=== PATIENT | male | born 1940 | race Caucasian/White ===

== ENCOUNTER → 2018-10-24 | Day surgery (SDC) | payer MEDICARE ==
[~2018-10-24] MED LIST: CEFTRIAXONE SOD 1 GM/NS 50 ML 50 ML IV ONE; FINASTERIDE5 MG PO; GABAPENTIN300 MG PO; LIDOCAINE JELLY 2% 10ML URO-JET ONE; MONTELUKAST SOD10 MG PO; OMEPRAZOLE40 MG PO
--- OUTSIDE RECORDS SUMMARY | 2018-10-24 07:03 | XMS REPORT ---
Author Author [facility] Address Unknown Phone Unavailable Care Team Providers Care Engineering Design Manager Name Role Phone Unavailable Unavailable Problems This patient has no known problems. Allergies, Adverse Reactions, Alerts This patient has no known allergies or adverse reactions. Medications This patient has no known medications. Results Test Description Test Time Test Comments Text Results Atomic Results Result Comments ECHO COMPLETE W/DOPPLER 2018-10-08 09:53:00 [facility] REPORTName: BONITA ROSE JR Study Date: 09/09/2018 02:37 PMMRN: [id number] Patient Location: 4S\\ S\\406\\S\\ADOB: 1940 (M/d/yyyy) Gender: MaleAge: 78 yrsHeight: 69 in Weight: 251 lbBSA: 2.3 x9Sssoxp For Study: SYNCOPE AND COLAPPSEProceduresA complete two-dimensional transthoracic echocardiogram was performed (2D,M-mode, Doppler and color flow Doppler).MMode/2D Measurements & CalculationsRVDd: 2.9 cm LVIDd: 5.3 cmIVSd: 1.1 cm LVIDs: 3.3 cmIVSs: 1.5 cm LVPWd: 1.1 cmLVPWs: 2.3 cm FS: 36.4 % % IVS thick: 41.7 %EDV(Teich): 133.5 mlESV(Teich): 45.7 mlEF(Teich): 65.7 % SV([facility] [place]): 87.7 ml Ao root diam: 3.0 cmAo root area: 7.0 cm2ACS: 1.5 cmLA dimension: 3.7 cm LVOT diam: 2.1 cmLVAd ap4: 22.8 [id number] area: 3.4 cm2 LVLd ap4: 7.7 cmEDV(MOD-sp4): 55.1 mlEDV(sp4-el): 57.0 mlLVAs ap4: 10.7 [id number] ap4: 4.9 cmESV(MOD-sp4): 20.4 mlESV(sp4-el): 19.9 mlEF(MOD-sp4): 62.9 %EF(sp4-el): 65.1 % SV(MOD-sp4): 34.7 ml SV(sp4-el): 37.1 mlDoppler Measurements & CalculationsMV E max saleem: 107.5 cm/sec MV P1/2t max saleem: 117.7 cm/secMV A max saleem: 66.2 cm/sec MV P1/2t: 65.7 msecMV E/A: 1.6MVA(P1/2t): 3.3 cm2MV dec slope: 524.7 cm/sec2MV dec time: 0.22 secLat Peak E' Saleem: 14.9 cm/secMed Peak E' Saleem: 12.9 cm/secLat E/e': 7.2Med E/e': 8.3 Ao V2 max: 132.5 cm/sec LV V1 max P.8 mmHgAo max P.0 mmHg LV V1 max: 97.9 cm/secAVA(V,D): 2.5 cm2AV Dimensionless Index: 0.74 MR max saleem: 329.7 cm/sec TR max saleem: 274.8 cm/secMR max P.5 mmHg TR max P.2 mmHgRVSP(TR): 38.2 mmHg RAP systole: 10.0 mmHgLeft VentricleThe left ventricle is grossly normal size. Left ventricular systolicfunction is normal. Ejection Fraction=65-70%. The transmitral spectralDoppler flow pattern is suggestive of pseudonormalization. The leftventricular wall motion is normal.Right VentricleThe right ventricle is grossly normal size.AtriaThe left atrial size is normal. Right atrial size is normal.Mitral ValveThe mitral valve is grossly normal. There is trace mitral regurgitation.Tricuspid ValveThe tricuspid valve is not well visualized, but is grossly normal. Rightventricular systolic pressure is normal. Right ventricular systolic pressureis 25-30mmHg. There is trace tricuspid regurgitation.Aortic ValveThe aortic valve is normal in structure and function.Great VesselsThe aortic root is normal size.Pericardium/PleuralThere is no pericardial effusion.Interpretation SummaryLeft ventricular systolic function is normal.Ejection Fraction=65-70%.The transmitral spectral Doppler flow pattern is suggestive ofpseudonormalization.Right ventricular systolic pressure is 25-30mmHg.Right ventricular systolic pressure is normal. Reading Physician: Electronically signed Smith Herrera MD 10/08/2018by: 09:53 AMOrdering Physician: OSMIN MATAReferrsergio Physician: KATEY KOPerformed By: Cheyenne Ricardo, SEAN, RVS MRI BRAIN W 2018-09-10 07:50:[address] [id number] IMAGING REPORTPatient Name: BONITA ROSE Stephy of Service: [id number]: 78 Sex: M Order #: [id number] Room: [facility] 4SDOB: 1940 X-Ray Number: [id number] Record Number: [id number] Hospital Number: [id number] Physician: PILAR HUITRON SOrdersergio Physician: OSMIN CARSONBrain MRI. Brain MRA.History: Slurred speech.Technique: IV contrast enhanced multiplanar multisequence MRI images of thebrain were reviewed. 3-D images of the intracranial vasculature wereincluded. The patient received 10 cc of IV MultiHance.Comparison: Nonacute CT head from September 08, 2018.Findings:There are no specific acute appearing intracranial defects depicted.There are scattered foci of high signal likely related to chronicmicrovascular ischemic changes.The ventricles appear symmetric and midline.The brown-white matter differentiation appears normal.The intracranial flow voids appear normal.There are no areas of diffusion restriction to suggest the presence ofacute or subacute ischemia.There is no specific intracranial vascular abnormality.Impression:No acute appearing intracranial abnormalities.No specific intracranial vascular abnormality.Electronically Signed By: Dino Fan M.D., 09/10/2018 7:48 AMLegally authenticated by MISSY Cabrera 2018-09-10 07:48:35 MRA HEAD W/O CONT 2018-09-10 07:50:[address] [id number] IMAGING REPORTPatient Name: BONITA ROSE HDate of Service: [id number]: 78 Sex: M Order #: [id number] Room: [facility] 4SDOB: 1940 X-Ray Number: [id number] Record Number: [id number] Hospital Number: [id number] Physician: PILAR HUITRON Physician: OSMIN CARSONBrain MRI. Brain MRA.History: Slurred speech.Technique: IV contrast enhanced multiplanar multisequence MRI images of thebrain were reviewed. 3-D images of the intracranial vasculature wereincluded. The patient received 10 cc of IV MultiHance.Comparison: Nonacute CT head from September 08, 2018.Findings:There are no specific acute appearing intracranial defects depicted.There are scattered foci of high signal likely related to chronicmicrovascular ischemic changes.The ventricles appear symmetric and midline.The brown-white matter differentiation appears normal.The intracranial flow voids appear normal.There are no areas of diffusion restriction to suggest the presence ofacute or subacute ischemia.There is no specific intracranial vascular abnormality.Impression:No acute appearing intracranial abnormalities.No specific intracranial vascular abnormality.Electronically Signed By: Dino Fan M.D., 09/10/2018 7:48 AMLegally authenticated by MISSY Cabrera 2018-09-10 07:48:35 [facility], BASIC METABOLIC PANEL 2018-09-10 06:42:00 SODIUM (test code=NA) 140 MMOL/L 137-145 K+ (test code=KSERUM) 3.8 MMOL/L 3.5-5.1 PLEASE NOTE NEW REFERENCE RANGE(S) IN EFFECT EFFECTIVE 10/07/2009 - NEW ANALYZER ([employer]S 5600) CHLORIDE (test code=CL) 108 MMOL/L 98-107 CO2 (test code=CO2) 29 MMOL/L 22-30 BUN (test code=BUN) 22 MG/DL 9-20 CREA (test code=CREA) 0.8 MG/DL 0.8-1.5 GLUCOSE (test code=GLUCOSE) 94 MG/DL 70-99 Fasting glucose normal <100 MG/DL- [employer] recommendation CALCIUM (test code=CABLOOD) 8.3 MG/DL 8.4-10.2 GFR (test code=GFR) TNP mL/min/1.73m2 GFR CALCULATION IS NOT APPLICABLE FOR PATIENTS <18 A GFR of >90 mL/min/1.73m2 is considered normal. [id number] 06:06:00* Test Item Value Reference Range Comments WBC (test code=WBC) 5.6 K/UL 3.5-10.9 RBC (test code=RBC) 4.27 M/UL 4.3-5.7 HGB (test code=HGB) 13.5 G/DL 13.0-17.9 HCT (test code=HCT) 41.0 % 38-52 MCV (test code=MCV) 96.0 FL 80-98 MCH (test code=MCH) 31.6 PG 28-32 MCHC (test code=MCHC) 32.9 G/DL 32.5-36.5 RDW (test code=RDW) 12.4 % 11.5-14.5 PLT (test code=PLT) 181 K/UL 150-450 MPV (test code=MPV) 10.6 FL 7.4-10.4 MANDIFF (test code=MANDIFF) NO SCAN (test code=SCAN) NO NEUT% (test code=NEUT%) 53.2 % 40-75 LYMPH% (test code=LYMPH%) 31.2 % 24-44 MONO% (test code=MONO%) 7.9 % 0-13 EOS% (test code=EOS%) 6.6 % 0-4 BASO % (test code=BASO%) 0.9 % 0-2 IG (test code=IG) 0 % 0-1 IG% (test code=IG%) 0.2 % 0-1 IG%=Metamyelocytes, Myelocytes, and Promyelocytes. (Immature neutrophils not including "bands".) > 3% IG indicates risk of sepsis NRBC% (test code=NRBC%) 0 /100 WBC ABS NEUT (test code=NEUT) 3.0 K/UL 1.2-7.2 LIPID [id number] 12:27:00* Test Item Value Reference Range Comments CHOLEST (test code=CHOLEST) 153 MG/DL 0-200 TRIGLYCE (test code=TRIGLYCE) 203 MG/DL 0-150 HDL (test code=HDL) 38 MG/DL 30-65 NEGATIVE RISK FACTOR FOR HEART DISEASE IF HDL >/=60 mg/dl MAJOR RISK FACTOR FOR HEART DISEASE IF HDL <40 mg/dL CALC LDL (test code=CALC LDL) 74 MG/DL <100 % HEMOGLOBIN A1C (GLYCATED)2018-09-09 12:18:00* Test Item Value Reference Range Comments HEMOGLOBIN A1C (test code=GLYCO-) 5.5 % 0-6 THERAPEUTIC TARGET FOR THE TREATMENT OF DIABETES MELLITUS PATIENTS IS < 7% HBA1C. [employer] DIABETES ASSOC. DIABETES CARE 2002;25:S33-S49 CAROTID [id number] 14:09:[address] [id number] IMAGING REPORTPatient Name: BONITA ROSE HDate of Service: 31-18-1389Teh: 78 Sex: M Order #: [id number] Room: [facility] 4SDOB: 1940 X-Ray Number: [id number] Record Number: [id number] Hospital Number: [id number] Physician: PILAR HUITRON Physician: MARIBEL BARNHART CAROTID DOPPLER, 09/08/2018 1:48 PM:History: syncope . Syncope with collapse. Carotid artery stenosis andocclusion.Comparison: None.Technique: Grayscale, color Doppler, and spectral Doppler analysis of thecervical carotid vasculature was performed bilaterally. Percent vascularstenoses are calculated per NASCENT criteria.Findings:The cervical carotid arteries are patent bilaterally with normal peaksystolic velocities and normal spectral Doppler waveforms. The commoncarotid, carotid bifurcation, and cervical internal carotid arteries areall patent bilaterally. There is no significant atherosclerotic plaque. Thevertebral arteries are patent bilaterally without stenosis and antegradeflow. The ICA to CCA ratio measures 0 .9 on the right and 1.0 on the left.Impression:Normal carotid Doppler sonogram.E lectronically Signed By: Julien Martinez M.D., 09/08/2018 2:06 PMLegally authenti cated by BRADLEY COOK 2018-09-08 14:06:48CT HEAD W/O [id number] 07:51:[address] [id number] TIC IMAGING REPORTPatient Name: BONITA ROSE HDate of Service: 47-55-3043Psc: 78 Sex: M Order #: [id number] Room: ERDOB: 1940 X-Ray Number: [id number] Record Number: [id number] Hospital Number: [id number] Phaniy sician: Rocael ROCHE Physician: Siobhan ROCHE CT 09/08/2018 2:45 AMHisto ry: weakness. . Stroke. Neurological symptoms and deficits.Weakness. Left-side d weakness. Dysphasia.Comparison: 07/12/2017.Technique: Unenhanced CT imaging of the head. This CT exam was performedusing one or more of the following dose re duction techniques: Automatedexposure control, adjustment of the mA and/or KV ac cording to patient size,or use of iterative reconstruction technique.Findings:Th ere is no evidence of acute intracranial abnormality. Specifically, thereis no e vidence of acute hemorrhage, infarct, contusion, hydrocephalus,midline shift, or abnormal extra-axial collection. There is diffuse atrophywith proportionate ankita triculomegaly. Low attenuation in the periventricularwhite matter is nonspecific but likely reflects changes of chronic ischemicsmall vessel white matter diseas e. The calvarium is intact. There is mildbilateral paranasal sinus disease.Impr ession:1. No acute intracranial abnormality.2. Diffuse atrophy with proportionat e ventriculomegaly.3. 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 Stroke. Neurological symptoms and deficits.Left-sided weakness.Comparison: 12/15/2017Technique: 1 view chestFindings:The cardiomediastinal silhouette is enlarged. There is no edema. The lungsare clear without infiltrate, effusion, or pneumothorax. The bones areintact.Impression:Cardiomegaly without edema. Otherwise, no acute cardiopulmonary process.Electronically Signed By: Julien Martinez M.D., 09/08/2018 7:49 AMLegally authenticated by BRADLEY COOK 2018-09-08 07:49:[id number] 04:48:00* Test Item Value Reference Range Comments GLUCOSE (test code=URGLU) NEGATIVE MG/DL NEG-100 BILIRUBN (test code=URBILI) NEGATIVE NEGATIVE KETONE (test code=URKET) NEGATIVE MG/DL NEGATIVE BLOOD (test code=URBLD) NEGATIVE UR PH (test code=URPH) 6.0 5.0-7.5 PROTEIN (test code=URPRO) NEGATIVE MG/DL NEGATIVE NITRITES (test code=URNIT) NEGATIVE NEGATIVE UROBILINGEN (test code=URURO) 1.0 EU/DL 0.2-1.0 LEUKOCYT (test code=URLEU) NEGATIVE NEGATIVE UA COLOR (test code=UA COLOR) YELLOW YELLOW CLARITY (test code=CLARITY) CLEAR CLEAR SP GRAV (test code=URSPGRAV) 1.015 1.000-1.025 UAMICRO (test code=UAMICRO) NO [id number] 04:05:00* Test Item Value Reference Range Comments BLOOD TYPE (test code=TYPE) B Rh Positive Comment for Females Rhogam may be indicated for patient depending baby's Rh status. ANTIBODY SCREEN (test code=SCREEN) NEGATIVE NEGATIVE [id number] 03:54:00* Test Item Value Reference Range Comments %CKMB (test code=%MB) 1.0 % CKMB (test code=CKMB) 1.1 NG/ML 0.22-2.4 CK (test code=CK) 107 U/L 55-170 CKINTERP (test code=CKINTERP) NEGATIVE Negative WHOLE BLOOD [id number] 03:20:00* Test Item Value Reference Range Comments WHOLE BLOOD GLUCOSE (test code=POC GLU) 116 MG/DL 70-99 Fasting glucose normal <100 MG/DL- [employer] recommendation [id number] 03:15:00* Test Item Value Reference Range Comments PTT (test code=PTT) 26.9 SECONDS 24.4-36.3 HEPARIN THERAPEUTIC RANGE 57-92 SECONDS PROTHROMBIN TIME WITH [id number] 03:15:00* Test Item Value Reference Range Comments PROTHROMBIN TIME (test code=PT) 13.1 SECONDS 12.0-14.6 INR Usual Range=2 to 3 for prevention of deep vein thrombosis (DVT) INR (test code=INR) 1.0 [id number] 03:10:00* Test Item Value Reference Range Comments WBC (test code=WBC) 5.4 K/UL 3.5-10.9 RBC (test code=RBC) 4.26 M/UL 4.3-5.7 HGB (test code=HGB) 13.8 G/DL 13.0-17.9 HCT (test code=HCT) 41.5 % 38-52 MCV (test code=MCV) 97.4 FL 80-98 MCH (test code=MCH) 32.4 PG 28-32 MCHC (test code=MCHC) 33.3 G/DL 32.5-36.5 RDW (test code=RDW) 12.5 % 11.5-14.5 PLT (test code=PLT) 162 K/UL 150-450 MPV (test code=MPV) 10.0 FL 7.4-10.4 MANDIFF (test code=MANDIFF) NO SCAN (test code=SCAN) NO NEUT% (test code=NEUT%) 47.5 % 40-75 LYMPH% (test code=LYMPH%) 37.7 % 24-44 MONO% (test code=MONO%) 7.8 % 0-13 EOS% (test code=EOS%) 5.7 % 0-4 BASO % (test code=BASO%) 1.1 % 0-2 IG (test code=IG) 0 % 0-1 IG% (test code=IG%) 0.2 % 0-1 IG%=Metamyelocytes, Myelocytes, and Promyelocytes. (Immature neutrophils not including "bands".) > 3% IG indicates risk of sepsis NRBC% (test code=NRBC%) 0 /100 WBC ABS NEUT (test code=NEUT) 2.6 K/UL 1.2-7.2 TROPONIN [id number] 03:05:00* Test Item Value Reference Range Comments TROPER (test code=TROPER) 0.01 NG/ML 0.0-0.08 INTERPRETIVE DATA A POC TROPONIN OF </=0.08 NG/ML IS CONSIDERED NEGATIVE ISTAT [id number] [id number] 02:55:00* Test Item Value Reference Range Comments ISTATNA (test code=ISTATNA) 143 MMOL/L 137-145 ISTATK (test code=ISTATK) 3.8 MMOL/L 3.6-5.0 ISTATCL (test code=ISTATCL) 103 MMOL/L 98-107 ISTIONCA (test code=ISTIONCA) 1.19 MMOL/L 1.12-1.32 ISTCO2 (test code=ISTCO2) 28 MMOL/L 22-30 ISTATGLU (test code=ISTATGLU) 106 MG/DL 65-110 ISTATBUN (test code=ISTATBUN) 27.0 MG/DL 7.0-20.0 ISTCREA (test code=ISTCREA) 0.9 MG/DL 0.7-1.5 ISTATHCT (test code=ISTATHCT) 40 %PCV 37.0-52.0 ISTATHGB (test code=ISTATHGB) 13.6 G/DL 12.0-18.0 Notified Nurse/MD of results outside of Reference Ranges ISTANGAP (test code=ISTANGAP) 17 MMOL/L Notified Nurse/MD of results outside of Reference Ranges CT ABDOMEN/PELVIS [id number] 16:42:[address] [id number] IMAGING REPORTPatient Name: BONITA ROSE HDate of Service: 90-27-6496Akj: 78 Sex: M Order #: [id number] Room: OPEDOB: 1940 X-Ray Number: [id number] Record Number: [id number] Hospital Number: [id number] Physician: Chito MACHUCA Physician: KLAUS MACHUCA ABDOMEN/PELVIS WITH 07/02/2018 3:43 PMHistory: mass or lump RIGHT groinComparisons: 08/18/2017Contrast administered for this study per protocol: Isovue 300 - 100 mLIV. 15 mL Gastrografin by mouth per protocol.This CT exam was performed using one or more of the following dosereduction techniques: Automated exposure control, adjustment of the MAand/or KV according to patient size or use of iterative reconstructiontechn ique.FINDINGS:There is a 2.8 x 2.5 cm slightly heterogeneous fluid collection wi thin theRIGHT inguinal region. This may represent a small hematoma/seroma or asm all amount of fluid in the RIGHT inguinal canal. This was present on theprevious CT as well. There is no evidence for hernia.Solid abdominal viscera demonstrate no definite solid mass lesions orlacerations.Both kidneys enhance symmetrically. There is no hydronephrosis. There is atiny nonobstructing calculus in the midp ole RIGHT kidney is approximately 4mm.Previous cholecystectomy.There is no free air.There is no free fluid.There is no CT evidence for appendicitis, diverticuli tis or pancreatitis.There is uncomplicated colonic diverticulosis most marked in the sigmoidregion.There is no small bowel obstruction detected.There is no obvi ous enlarged adenopathy.IMPRESSION:Small fluid collection in the RIGHT femoral r egion as discussed above. Thiswas present on the previous exam and is essentiall y unchanged.No acute intra-abdominal or intrapelvic abnormality is detected.Elec tronically Signed By: Swapnil Mir M.D., 07/02/2018 4:39 PMLegally authenticat ed by NAPOLEON TINSLEY 2018-07-02 16:39:47I-STAT [id number] 15:55:00* Test Item Value Reference Range Comments ISTCREA (test code=ISTCREA) 0.7 MG/DL 0.7-1.5 CHEST XR 2 [id number] 11:51:[address] [id number] IMAGING REPORTPatient Name: BONITA ROSE HDate of Service: 93-54-7039Xfe: 77 Sex: M Order #: 100 Room: [facility]: 1940 X-Ray Number: [id number] Record Number: [id number] Hospital Number: [id number] Physician: DANE COOMBS TANOrdering Physician: JULIANE ROCHE XR 2 VIEWS 12/15/2017 9:21 PMHistory: Chest Pain with Trauma/Injury, status post fall.Comparisons: 08/18/2017FINDINGS:Heart size is normal.There is no focal lung consolidation.There is no definite pleural effusion or pneumothorax identified.IMPRESSION:No acute cardiopulmonary process.EMERGENT INTERPRETATION PROVIDED BY [facility].Electronically Signed By: Swapnil Mir M.D., 12/16/2017 11:49 AMLegally authenticated by NAPOLEON TINSLEY 2017-12-16 11:49:[id number] 23:44:00* Test Item Value Reference Range Comments GLUCOSE (test code=URGLU) NEGATIVE MG/DL NEG-100 BILIRUBN (test code=URBILI) NEGATIVE NEGATIVE KETONE (test code=URKET) NEGATIVE MG/DL NEGATIVE BLOOD (test code=URBLD) NEGATIVE UR PH (test code=URPH) 6.0 5.0-7.5 PROTEIN (test code=URPRO) NEGATIVE MG/DL NEGATIVE NITRITES (test code=URNIT) NEGATIVE NEGATIVE UROBILINGEN (test code=URURO) 1.0 EU/DL 0.2-1.0 LEUKOCYT (test code=URLEU) NEGATIVE NEGATIVE UA COLOR (test code=UA COLOR) YELLOW YELLOW CLARITY (test code=CLARITY) CLEAR CLEAR SP GRAV (test code=URSPGRAV) 1.025 1.000-1.025 UAMICRO (test code=UAMICRO) NO [id number] 22:14:00* Test Item Value Reference Range Comments %CKMB (test code=%MB) 1.4 % CKMB (test code=CKMB) 0.7 NG/ML 0.22-2.4 CK (test code=CK) 49 U/L 55-170 CKINTERP (test code=CKINTERP) NEGATIVE Negative BMP, BASIC METABOLIC [id number] 22:14:00* Test Item Value Reference Range Comments SODIUM (test code=NA) 142 MMOL/L 137-145 K+ (test code=KSERUM) 3.7 MMOL/L 3.5-5.1 PLEASE NOTE NEW REFERENCE RANGE(S) IN EFFECT EFFECTIVE 10/07/2009 - NEW ANALYZER ([employer]S 5600) CHLORIDE (test code=CL) 110 MMOL/L 98-107 CO2 (test code=CO2) 26 MMOL/L 22-30 BUN (test code=BUN) 24 MG/DL 9-20 CREA (test code=CREA) 0.7 MG/DL 0.8-1.5 GLUCOSE (test code=GLUCOSE) 129 MG/DL 70-99 Fasting glucose normal <100 MG/DL- [employer] recommendation CALCIUM (test code=CABLOOD) 8.5 MG/DL 8.4-10.2 GFR (test code=GFR) TNP mL/min/1.73m2 GFR CALCULATION IS NOT APPLICABLE FOR PATIENTS <18 A GFR of >90 mL/min/1.73m2 is considered normal. [id number] 21:46:00* Test Item Value Reference Range Comments WBC (test code=WBC) 5.3 K/UL 3.5-10.9 RBC (test code=RBC) 3.95 M/UL 4.3-5.7 HGB (test code=HGB) 13.2 G/DL 13.0-17.9 HCT (test code=HCT) 37.8 % 38-52 MCV (test code=MCV) 95.7 FL 80-98 MCH (test code=MCH) 33.4 PG 28-32 MCHC (test code=MCHC) 34.9 G/DL 32.5-36.5 RDW (test code=RDW) 12.4 % 11.5-14.5 PLT (test code=PLT) 159 K/UL 150-450 MPV (test code=MPV) 10.6 FL 7.4-10.4 MANDIFF (test code=MANDIFF) NO SCAN (test code=SCAN) NO NEUT% (test code=NEUT%) 48.9 % 40-75 LYMPH% (test code=LYMPH%) 33.6 % 24-44 MONO% (test code=MONO%) 7.7 % 0-13 EOS% (test code=EOS%) 8.7 % 0-4 BASO % (test code=BASO%) 0.9 % 0-2 IG (test code=IG) 0 % 0-1 IG% (test code=IG%) 0.2 % 0-1 IG%=Metamyelocytes, Myelocytes, and Promyelocytes. (Immature neutrophils not including "bands".) > 3% IG indicates risk of sepsis NRBC% (test code=NRBC%) 0 /100 WBC ABS NEUT (test code=NEUT) 2.6 K/UL 1.2-7.2 WHOLE BLOOD [id number] 21:41:00* Test Item Value Reference Range Comments WHOLE BLOOD GLUCOSE (test code=POC GLU) 135 mg/dL 70-99 Fasting glucose normal <100 MG/DL- [employer] recommendation CT ABDOMEN/PELVIS [id number] 07:19:[address] IMAGING REPORTPatient Name: BONITA ROSE HDate of Service: 71-10-5860Efk: 77 Sex: M Order #: 100 [facility] 1940 [facility] Number: [id number] Record Number: [id number] Hospital Number: [id number] Physician: Chong PEARCE Physician: ROXY HOPKINS abdomen and pelvis.History: Nausea, abdominal pain.Technique: IV contrast enhanced CT axial images of the abdomen and pelviswith sagittal and coronal reformatted images were reviewed.This CT exam was performed using one or more of the following dosereduction techniques: Automated exposure control, adjustment of the MAand/or KV according to patient size or use of iterative reconstructiontechnique.Comparison: None.Findin gs:Images of the lower lungs and mediastinum demonstrate no specific defects.The solid large organs of the upper abdomen appear focally normal.The gallbladder is surgically absent.There is no significant retroperitoneal adenopathy or fluid collectionsdepicted.Small bowel loops appear normal.Large bowel loops demonstrat e only scattered fecal debris.Probable prior appendectomy.The urinary bladder ap pears normal. There is no pelvic free fluid seen.Impression:No specific acute ap pearing abdominal abnormalities.Electronically Signed By: Mahendra Maria, 08/19/2017 7:16 AMLegally authenticated by MISSY Cabrera 2017-08-19 07:16: 48CHEST 1 VIEW [id number] 21:06:[address] [id number] IMAGING REPORTPatient Name: BONITA ROSE HDate of Service: 11-44-3302Ekl: 77 Sex: M Order #: [id number] Room: [facility]: 1940 X-Ray Number: [id number] Record Number: [id number] Hospital Number: [id number] Physician: Chong PEARCE Physician: Gamaliel HOPKINS.08/18/2017 8:01 PMHistory: Short of breath.Technique: Single AP chest projection.Findings: Single chest projection demonstrates normal heart size and clearlungs. No infiltrates or abnormalities are depicted. The osseous structuresappear intact.Impression:No acute-appearing cardiopulmonary abnormalities.Electronically Signed By: Dino Fan M.D., 08/18/2017 9:03 PMLegally authenticated by MISSY Cabrera 2017-08-18 21:03:52 [id number] 20:44:00* Test Item Value Reference Range Comments SODIUM (test code=NA) 145 MMOL/L 137-145 K+ (test code=KSERUM) 4.1 MMOL/L 3.5-5.1 PLEASE NOTE NEW REFERENCE RANGE(S) IN EFFECT EFFECTIVE 10/07/2009 - NEW ANALYZER ([employer] 5600) CHLORIDE (test code=CL) 109 MMOL/L 98-107 CO2 (test code=CO2) 30 MMOL/L 22-30 BUN (test code=BUN) 22 MG/DL 9-20 CREA (test code=CREA) 1.1 MG/DL 0.8-1.5 GLUCOSE (test code=GLUCOSE) 99 MG/DL 70-99 Fasting glucose normal <100 MG/DL- [employer] recommendation CALCIUM (test code=CABLOOD) 9.3 MG/DL 8.4-10.2 TOTPROT (test code=TOTPROT) 6.7 G/DL 6.3-8.2 ALBUMIN (test code=ALBSERUM) 3.9 G/DL 3.5-5.0 BILITOT (test code=BILITOT) 0.4 MG/DL 0.2-1.3 AST (test code=AST) 15 U/L 15-46 PHOSALK (test code=PHOSALK) 68 U/L 38-126 ALT (test code=ALT) 26 U/L 13-69 GFR (test code=GFR) TNP mL/min/1.73m2 GFR CALCULATION IS NOT APPLICABLE FOR PATIENTS <18 A GFR of >90 mL/min/1.73m2 is considered normal. [id number] 20:44:00* Test Item Value Reference Range Comments LIPASE (test code=LIPA) 59 U/L 23-300 [id number] 20:23:00* Test Item Value Reference Range Comments WBC (test code=WBC) 4.8 K/UL 3.5-10.9 RBC (test code=RBC) 4.31 M/UL 4.3-5.7 HGB (test code=HGB) 14.1 G/DL 13.0-17.9 HCT (test code=HCT) 41.5 % 38-52 MCV (test code=MCV) 96.3 FL 80-98 MCH (test code=MCH) 32.7 PG 28-32 MCHC (test code=MCHC) 34.0 G/DL 32.5-36.5 RDW (test code=RDW) 12.5 % 11.5-14.5 PLT (test code=PLT) 186 K/UL 150-450 MPV (test code=MPV) 10.2 FL 7.4-10.4 MANDIFF (test code=MANDIFF) NO SCAN (test code=SCAN) NO NEUT% (test code=NEUT%) 44.4 % 40-75 LYMPH% (test code=LYMPH%) 40.5 % 24-44 MONO% (test code=MONO%) 8.1 % 0-13 EOS% (test code=EOS%) 5.8 % 0-4 BASO % (test code=BASO%) 0.8 % 0-2 IG% (test code=IG%) 0.4 % 0-1 IG%=Metamyelocytes, Myelocytes, and Promyelocytes. (Immature neutrophils not including "bands".) > 3% IG indicates risk of sepsis NRBC% (test code=NRBC%) 0 /100 WBC ABS NEUT (test code=NEUT) 2.1 K/UL 1.2-7.2 US [id number] 13:09:[address] [address]JYZIMVMMVF IMAGING REPORTPatient Name: BONITA ROSE HDate of Service: 74-97-0869Gbv: 77 Sex: M Order #: [id number] Room: OPODOB: 1940 X-Ray Number: [id number] Record Number: [id number] Hospital Number: [id number] Physician: Shyla KO Physician: KATEY KOScrotal ultrasound 07/31/2017HISTORY: Right groin and testicular region pain x2 months with tendernessGrayscale, color Doppler and duplex imaging with spectral analysis wasperformed.COMPARISON: 11/10/2013Right testicle measures 4.0 x 2.6 x 3.5 cm and the left 4.2 x 2.3 x 3.2 cm.There is normal vascular flow bilaterally. The left testicular echotextureremain slightly heterogeneous but is similar to the prior study. No newfocal mass or other suspicious testicular abnormality is seen.Multiple right epididymal head cysts versus spermatoceles are again notedmeasuring up to 1.6 m. Similar but lesser changes are again noted on theleft measuring up to 1 cm in diameter. The amount of cystic structures onthe left has decreased from the prior.Small bilateral hydroceles are evident.Incidental note is made of multiple lymph nodes in the right inguinalregion measuring up to 2.7 cm in length. These are nonspecific and havefairly normal-appearing internal architecture.IMPRESSION:No definite new testicular process with chronic appearing findings asdiscussed. Very small bilateral hydroceles.Nonspecific right inguinal lymph nodes.Electronically Signed By: Fred Ramírez M.D., 07/31/2017 1:07 PMLegally authenticated by DAPHNEY BAUMANN 2017-07-31 13:07:03CT HEAD W/O [id number] 07:35:[address] [address]RNDTYQMOIA IMAGING REPORTPatient Name: BONITA ROSE HDate of Service: 63-56-7464Qme: 77 Sex: M Order #: [id number] Room: ERSDOB: 1940 X-Ray Number: [id number] Record Number: [id number] Hospital Number: [id number] Ph ysician: SUZETTE MENDOZA -Ordering Physician: SUZETTE MENDOZA -Head CT 07/13/19 18 12:35 AMHistory: Mental Status Change. Altered mental status. Altered level o fconsciousness. Left facial numbness.Comparison: NoneTechnique: Unenhanced CT i maging of the head. This CT exam was performedusing one or more of the followin g dose reduction techniques: Automatedexposure control, adjustment of the mA and /or KV according to patient size,or use of iterative reconstruction technique.Fi ndings:There is no evidence of acute intracranial abnormality. Specifically, the joreg no evidence of acute hemorrhage, infarct, contusion, hydrocephalus,midline shift, or abnormal extra-axial collection. There is mild lowattenuation in the p eriventricular white matter bilaterally, likelyreflecting changes of chronic isc hemic small vessel white matter disease.The calvarium is intact. There is mucope riosteal thickening involving themaxillary sinuses and ethmoid air cells bilater ally.Impression:1. No acute intracranial abnormality.2. Probable changes of trouble operator suellen ischemic small vessel white matter disease.Electronically Signed By: Julien Martinez M.D., 07/12/2017 7:33 AMLegally authenticated by BRADLEY COOK 07-12 07:33:04CHEST 1 VIEW [id number] 07:14:00[address] [address]ZCNFTPOCMU IMAGING REPORTPatient Name: BONITA ROSE HDate of Service: 19-02-0276Bsj: 77 Sex: M Order #: [id number] [facility] 1940 [facility] Number: [id number] Record Number: [id number] Hospital Number: [id number] Phy sician: SUZETTE MENDOZA -Ordering Physician: SUZETTE MENDOZA -CHEST 1 VIEW POR TABLE 07/11/2017 11:17 PM:History: CP . Chest pain. Left-sided chest pain.William rison: 04/05/2017Technique: 1 view chestFindings:The cardiomediastinal silhouett e is enlarged but stable. There is no edema.The lungs are clear without infiltra te, effusion, or pneumothorax. Thebones are intact.Impression:No acute cardiopul monary process or significant interval change.Electronically Signed By: Julien arceo M.D., 07/12/2017 7:12 AMLegally authenticated by BRADLEY COOK 2017-07 07:12:10TROPONIN [id number] 02:16:00* Test Item Value Reference Range Comments TROPER (test code=TROPER) 0.00 ng/ml 0.0-0.08 INTERPRETIVE DATA A POC TROPONIN OF </=0.08 NG/ML IS CONSIDERED NEGATIVE TROPONIN [id number] 00:45:00* Test Item Value Reference Range Comments TROPER (test code=TROPER) 0.00 ng/ml 0.0-0.08 INTERPRETIVE DATA A POC TROPONIN OF </=0.08 NG/ML IS CONSIDERED NEGATIVE PROBRAIN NATRIURETIC [id number] 00:01:00* Test Item Value Reference Range Comments NT-PROBNP (test code=PROBNP) 110 pg/mL Exclusion for heart failure for patients of all ages is 300 pg/mL. Inclusion for heart failure for patients age <50 is 450 pg/mL; for patients age 50-75 is 900 pg/mL; for patients age >75 is 1800 pg/ mL. [id number] 00:01:00* Test Item Value Reference Range Comments %CKMB (test code=%MB) 0.7 % CKMB (test code=CKMB) 0.5 NG/ML 0.22-2.4 CK (test code=CK) 73 U/L 55-170 CKINTERP (test code=CKINTERP) NEGATIVE Negative BMP, BASIC METABOLIC [id number] 23:52:00* Test Item Value Reference Range Comments SODIUM (test code=NA) 142 MMOL/L 137-145 K+ (test code=KSERUM) 3.8 MMOL/L 3.5-5.1 PLEASE NOTE NEW REFERENCE RANGE(S) IN EFFECT EFFECTIVE 10/07/2009 - NEW ANALYZER ([employer] 5600) CHLORIDE (test code=CL) 107 MMOL/L 98-107 CO2 (test code=CO2) 27 MMOL/L 22-30 BUN (test code=BUN) 25 MG/DL 9-20 CREA (test code=CREA) 0.7 MG/DL 0.8-1.5 GLUCOSE (test code=GLUCOSE) 110 MG/DL 70-99 Fasting glucose normal <100 MG/DL- [employer] recommendation CALCIUM (test code=CABLOOD) 9.0 MG/DL 8.4-10.2 GFR (test code=GFR) TNP mL/min/1.73m2 GFR CALCULATION IS NOT APPLICABLE FOR PATIENTS <18 A GFR of >90 mL/min/1.73m2 is considered normal. PROTHROMBIN TIME WITH [id number] 23:43:00* Test Item Value Reference Range Comments PROTHROMBIN TIME (test code=PT) 13.7 SECONDS 12.0-14.6 INR Usual Range=2 to 3 for prevention of deep vein thrombosis (DVT) INR (test code=INR) 1.0 [id number] 23:43:00* Test Item Value Reference Range Comments PTT (test code=PTT) 28.4 SECONDS 24.4-36.3 HEPARIN THERAPEUTIC RANGE 57-92 SECONDS [id number] 23:39:00* Test Item Value Reference Range Comments WBC (test code=WBC) 4.9 K/UL 3.5-10.9 RBC (test code=RBC) 4.00 M/UL 4.3-5.7 HGB (test code=HGB) 13.3 G/DL 13.0-17.9 HCT (test code=HCT) 38.2 % 38-52 MCV (test code=MCV) 95.5 FL 80-98 MCH (test code=MCH) 33.3 PG 28-32 MCHC (test code=MCHC) 34.8 G/DL 32.5-36.5 RDW (test code=RDW) 12.5 % 11.5-14.5 PLT (test code=PLT) 185 K/UL 150-450 MPV (test code=MPV) 10.4 FL 7.4-10.4 MANDIFF (test code=MANDIFF) NO SCAN (test code=SCAN) NO NEUT% (test code=NEUT%) 44.1 % 40-75 LYMPH% (test code=LYMPH%) 40.2 % 24-44 MONO% (test code=MONO%) 8.8 % 0-13 EOS% (test code=EOS%) 5.9 % 0-4 BASO % (test code=BASO%) 0.8 % 0-2 IG% (test code=IG%) 0.2 % 0-1 IG%=Metamyelocytes, Myelocytes, and Promyelocytes. (Immature neutrophils not including "bands".) > 3% IG indicates risk of sepsis NRBC% (test code=NRBC%) 0 /100 WBC ABS NEUT (test code=NEUT) 2.2 K/UL 1.2-7.2 CTA [id number] 13:19:00[address]IAGNOSTIC IMAGING REPORTPatient Name: BONITA ROSE HDate of Service: 09-81-7203Yxn: 76 Sex: M Order #: [id number] [facility] Number: [id number] Record Number: [id number] Hospital Number: [id number] Physician: SUZETTE MENDOZA -Ordering Physician: SUZETTE MENDOZA -CT chest, PE protocol.History:Technique: IV contrast enhanced CT images the chest in the axial plane.Sagittal and coronal reformatted images were reviewed. 3-D MIP images werealso reviewed.This CT exam was performed using one or more of the following dosereduction techniques: Automated exposure control, adjustment of the MAand/or KV according to patient size or use of iterative reconstructiontechnique.Findings:There is no evidence of pulmonary thromboembolic disease present.The heart size is normal. There is no hilar or mediastinal adenopathypresent. There is no mass seen.There is no parenchymal infiltrate or mass seen.Limited images of the upper abdomen demonstrate no specific defects. Priorcholecystectomy changes are noted. ImpressionNo evidence to suggest pulmonary thromboembolic disease or focalinfilt rate.Electronically Signed By: Dino Fan M.D., 04/05/2017 1:17 PMLegally authenticated by MISSY Cabrera 2017-04-05 13:17:07CHEST 1 VIEW PORTABLE 2017-04-05 12:06:00[place]atthe[place] [id number] IMAGING REPORTPatient Name: BONITA ROSE of Service: 89-22-2979Hhb: 76 Sex: M Order #: [id number] Room: ERSDOB: 1940 X-Ray Number: [id number] Record Number: [id number] Hospital Number: [id number] Physician: SUZETTE MENDOZA -Ordering Physician: SUZETTE MENDOZA -Chest.11:48 AMHistory: Hypertension.Technique: Single AP chest projection.Findings: Single chest projection demonstrates normal heart size and clearlungs. No infiltrates or abnormalities are depicted. The osseous structuresappear intact.Impression:No acute-appearing cardiopulmonary abnormalities.Electronically Signed By: Dino Fan M.D., 04/05/2017 12:03 PMLegally authenticated by MISSY Cabrera 2017-04-05 12:03:37US VENO EXT. [id number] 11:49:00[place] [address]DIAGNOSTIC IMAGING REPORTPatient Name: BONITA ROSE of Service: 99-25-7197Vyh: 76 Sex: M Order #: [id number] Room: ERSDOB: 1940 X-Ray Number: [id number] Record Number: [id number] Hospital Number: [id number] Physician: SUZETTE MENDOZA -Ordering Physician: SUZETTE MENDOZA -Left lower extremity venous Doppler ultrasound 04/05/2017History: Left leg swellingComparison: 09/15/2016Grayscale, color-flow, and duplex images with spectral analysis wereobtained.There is normal spontaneous flow with good compression and augmentation inthe left common femoral, superficial femoral and popliteal veins.Visualized portions of anterior and posterior tibial veins are patent.Impression:Negative for DVT.Electronically Signed By: Fred Ramírez M.D., 04/05/2017 11:46 AMLegally authenticated by DAPHNEY MALIK 2017-04-05 11:46:53LEG 2 [id number] 07:18:00[facility] [place], [place] [address]KOJVHXKHBL IMAGING REPORTPatient Name: BONITA ROSE HDate of Service: 35-43-2720Ozt: 76 Sex: M Order #: 100 Room: ERSDOB: 1940 X-Ray Number: [id number] Record Number: [id number] Hospital Number: [id number] [facility] sician: Natacha ESPINOZA Physician: Madeline ROCHE lower leg 2 views 7 at 2346 hoursHISTORY: Recent injury to the left lower leg with bruising and sw elling,pain with ambulationCOMPARISON: NoneNo fracture or dislocation is seen. T here is at least moderate soft tissueswelling of the lower leg. No subcutaneous air or foreign body. Knee andankle joint spaces are maintained. Achilles and venus ntar spurs are projectedoff the calcaneus.No other definite acute process.The st udy was performed on an emergent basis and preliminary report faxedto the Emerge ncy Department by the [facility] service nearthe time of the exam. Electronically Signed By: Fred Ramírez M.D., 09/15/2016 7:15 AMLegally authenticat ed by DAPHNEY MALIK 2016-09-15 07:15:47US VENO EXT. [id number] 07:07:00 [facility] [place] [address]TTIPDHU TIC IMAGING REPORTPatient Name: BONITA ROSE HDate of Service: 03-48-5986Cfc: 76 Sex: M Order #: [id number] Room: ERSDOB: 1940 X-Ray Number: [id number] Record Number: [id number] Hospital Number: [id number] [facility] sician: Natacha ESPINOZA Physician: Madeline ROCHE lower extremity venous Dop pler.History:Pain and swelling.Technique:Left lower extremity doppler assessment was performed withgrayscale, color Doppler and spectral waveform images.Finding s:There is no evidence of DVT. There is normal flow compression and vascularaugm entation depicted. There are no specific soft tissue defects depicted.Impression :Unremarkableleft lower extremity venous Doppler. No evidence of DVT. Nosoft tis toño defects.Electronically Signed By: Dino Fan M.D., 09/15/2016 7:05 AM Legally authenticated by MISSY Cabrera 2016-09-15 07:05:21ECHO COMPLETE [id number] 16:34:00[facility] REPORTName: MILTONBONITA JR Study Date: 05/15/2016 02:43 PMMRN: [id number] Patient Location: T4\\S\\4420\\S\\AHR: 58DOB: 1940 (M/d/yyyy)Gender: MaleAge: 75 yrs Ethnicity: WHeight: 68 in Weight: 250 lbBSA: 2.2 f3Cpnpqu For Study: Chest PainHistory: PVDProceduresA complete two-dimensional transthoracic echocardiogram was performed (2D,M-mode, Doppler and color flow Doppler).MMode/2D Measurements and CalculationsRVDd: 2.2 cm LVIDd: 4.8 cmIVSd: 1.4 cm LVIDs: 3.2 cmIVSs: 1.8 cm LVPWd: 1.3 cmLVPWs: 1.6 cm FS: 33.3 % % IVS thick: 23.6 %EDV(Teich): 109.1 mlESV(Teich): 41.6 m lEF(Teich): 61.9 % C O(Teich): 3.9 l/min EPSS: 0.80 cmSV(Teich): 67.5 ml MV excursion: 2.5 cmMV E-F slope: 7.6 cm/sec Ao root diam: 4.3 cm LVOT diam: 2.0 cmAo root area: 14.5 cm LVOT area: 3.1 cm2ACS: 2.5 cmLA dimension: 3.8 cm LVLd ap4: 7.6 cm CO(MOD-sp4): 2.9 l/minEDV(MOD-sp4): 86.0 ml SV(MOD-sp4): 50.0 mlLVLs ap4: 5.8 cmESV(MOD-sp4): 36.0 mlEF(MOD-sp4): 58.1 %Time MeasurementsMM R-R int: 1.0 sec LVET: 0.35 secMM HR: 58.0 BPMDoppler Measurements and CalculationsMV E max saleem: 81.6 cm/sec MV V2 max: 106.0 cm/secMV A max saleem: 104.0 cm/sec MV max P.5 mmHgMV E/A: 0.78 MV V2 mean: 44.2 cm/secLV IVRT: 0.18 sec MV mean P.0 mmHgMV V2 VTI: 33.6 cmMVA(VTI): 2.2 cm2 MV P1/2t max saleem: 81.6 cm/sec Ao V2 max: 136.0 cm/secMV P1/2t: 55.2 msec Ao max P.4 mmHgAo V2 mean: 93.7 cm/secMVA(P1/2t): 4.0 cm Ao mean P.0 mmHgMV dec slope: 433.0 cm/sec Ao V2 VTI: 30.0 cmMV dec time: 0.20 secAVA(I,D): 2.5 cmAVA(V,D): 2.7 cm2 LV V1 max P.5 mmHg MR max saleem: 342.5 cm/secLV V1 mean P.0 mmHg MR max P.1 mmHgLV V1 max: 117.0 cm/secLV V1 mean: 71.6 cm/secLV V1 VTI: 23.7 c m SV(LVOT): 74.5 ml TR max saleem: 256.0 cm/secTR max P.0 mmHgRVSP(TR): 36.0 mmHg RAP systole: 10.0 mmHgLeft VentricleThe left ventricle is grossly normal size. There is mild asymmetric leftventricular hypertrophy. Left ventricular systolic function is no rmal.Ejection Fraction=60-65%. The transmitral spectral Doppler flow patternis s uggestive of impaired LV relaxation. There is mild inferior wallhypokinesis.Righ t VentricleThe right ventricle is grossly normal size. The right ventricular sys tolicfunction is normal.AtriaThe left atrial size is normal. Right atrial size i s normal.Mitral ValveThe mitral valve is grossly normal. There is trace mitral r egurgitation.Tricuspid ValveThe tricuspid valve is not well visualized, but is g rossly normal. Rightventricular systolic pressure is normal. There is mild tricu spidregurgitation.Aortic ValveThe aortic valve is normal in structure and functi on.Great VesselsThe aortic root is normal size.Pericardium/PleuralThere is no pe ricardial effusion.Interpretation SummaryLeft ventricular systolic function is n ormal.There is mild asymmetric left ventricular hypertrophy.Ejection Fraction=60 -65%.The transmitral spectral Doppler flow pattern is suggestive of impaired LVr elaxation.Right ventricular systolic pressure is normal. Smith Herrera MD 05/16/19 17Reading Physician: Electronically signed by:04:35 PMOrdering Physician: Charles Hadleyerrsergio Physician: TAMI MADRID -Performed By: Ne Murry 2016-05-14 12:57:00[place] [address]DIAGNOSTIC IMAGING REPORTPatient Name: BONITA ROSE HDate of Service: 82-20-9059Pnz: 75 Sex: M Order #: [id number] Room: [facility]: 1940 X-Ray Number: [id number] Record Number: [id number] Hospital Number: [id number] Physician: Milagros GARRISON Physician: TONY GARRISON RIGHT-SIDEDHISTORY: Right-sided chest painCOMPARISON: Chest radiograph 05/03/2016FINDINGS AND IMPRESSION:No displaced fracture is identified.Electronically Signed By: Ema Dalton, 05/14/2016 12:55 PMLegally authenticated by RACH HINES 2016-05-14 12:55:41CHEST 1 VIEW PORTABLE 2016-05-14 11:28:00[place] [address]DIAGNOSTIC IMAGING REPORTPatient Name: MILTON BONITA HDate of Service: 90-30-9399Mns: 75 Sex: M Order #: [id number] Room: [facility]: 1940 X-Ray Number: [id number] Record Number: [id number] Hospital Number: [id number] Physician: YUE GARRISONOrdering Physician: MARIANNE GARRISON 1 VIEW PORTABLEHISTORY: Chest pain, shortness of breath, coughCOMPARISON: 05/03/2016FINDINGS AND IMPRESSION:The heart is mildly enlarged, unchanged.Minimal to mild early interstitial pulmonary edema is suggested.No large pleural effusion or lobar consolidation is present.Electronically Signed By: Ema Dalton, 05/14/2016 11:26 AMLegally authenticated by RACH HINES 2016-05-14 11:26:[id number] 00:08:00* Test Item Value Reference Range Comments GLUCOSE (test code=URGLU) NEGATIVE MG/DL NEG-100 BILIRUBN (test code=URBILI) NEGATIVE NEGATIVE KETONE (test code=URKET) NEGATIVE MG/DL NEGATIVE BLOOD (test code=URBLD) NEGATIVE UR PH (test code=URPH) 5.5 5.0-7.5 PROTEIN (test code=URPRO) NEGATIVE MG/DL NEGATIVE NITRITES (test code=URNIT) NEGATIVE NEGATIVE UROBILINGEN (test code=URURO) 1.0 EU/DL 0.2-1.0 LEUKOCYT (test code=URLEU) NEGATIVE NEGATIVE UA COLOR (test code=UA COLOR) YELLOW YELLOW CLARITY (test code=CLARITY) CLEAR CLEAR SP GRAV (test code=URSPGRAV) 1.031 1.000-1.025 UAMICRO (test code=UAMICRO) NO LIVER [id number] 22:40:00* Test Item Value Reference Range Comments TOTPROT (test code=TOTPROT) 6.3 G/DL 6.3-8.2 ALBUMIN (test code=ALBSERUM) 3.7 G/DL 3.5-5.0 BILITOT (test code=BILITOT) 0.5 MG/DL 0.2-1.3 BILIDIR (test code=BILIDIR) 0.4 MG/DL 0.0-0.4 AST (test code=AST) 33 U/L 15-46 PHOSALK (test code=PHOSALK) 75 U/L 38-126 ALT (test code=ALT) 23 U/L 13-69 D-DIMER, [id number] 21:51:00* Test Item Value Reference Range Comments D-DIMER (test code=DDIMER) 0.53 ug/mL (FEU) 0.27-0.50 VALUES OF QUANTITATIVE D-DIMER LESS THAN 0.4 UG/ML HAVE BEEN REPORTED TO BE ASSOCIATED WITH A LOW PROBABILITY OF DEEP VEIN THROMBOSIS/PULMONARYEMBOLISM. THIS TEST ALONE SHOULD NOT BE USED TO RULE OUT DVT/PE. [id number] 21:49:00* Test Item Value Reference Range Comments WBC (test code=WBC) 5.7 K/UL 3.5-10.9 RBC (test code=RBC) 4.34 M/UL 4.3-5.7 HGB (test code=HGB) 14.3 G/DL 13.0-17.9 HCT (test code=HCT) 40.9 % 38-52 MCV (test code=MCV) 94.2 FL 80-98 MCH (test code=MCH) 32.9 PG 28-32 MCHC (test code=MCHC) 35.0 G/DL 32.5-36.5 RDW (test code=RDW) 12.0 % 11.5-14.5 PLT (test code=PLT) 196 K/UL 150-450 MPV (test code=MPV) 10.3 FL 7.4-10.4 MANDIFF (test code=MANDIFF) NO SCAN (test code=SCAN) NO NEUT% (test code=NEUT%) 46.1 % 40-75 LYMPH% (test code=LYMPH%) 39.7 % 24-44 MONO% (test code=MONO%) 6.0 % 0-13 EOS% (test code=EOS%) 6.7 % 0-4 BASO % (test code=BASO%) 1.1 % 0-2 IG% (test code=IG%) 0.4 % 0-1 IG%=Metamyelocytes, Myelocytes, and Promyelocytes. (Immature neutrophils not including "bands".) > 3% IG indicates risk of sepsis NRBC% (test code=NRBC%) 0 /100 WBC ABS NEUT (test code=NEUT) 2.6 K/UL 1.2-7.2 [id number] 21:46:00* Test Item Value Reference Range Comments %CKMB (test code=%MB) 0.9 % CKMB (test code=CKMB) 1.1 NG/ML 0.22-2.4 CK (test code=CK) 119 U/L 55-170 CKINTERP (test code=CKINTERP) NEGATIVE Negative PROBRAIN NATRIURETIC [id number] 21:46:00* Test Item Value Reference Range Comments NT-PROBNP (test code=PROBNP) 54 pg/mL Exclusion for heart failure for patients of all ages is 300 pg/mL. Inclusion for heart failure for patients age <50 is 450 pg/mL; for patients age 50-75 is 900 pg/mL; for patients age >75 is 1800 pg/ mL. BMP, BASIC METABOLIC [id number] 21:45:00* Test Item Value Reference Range Comments SODIUM (test code=NA) 145 MMOL/L 137-145 K+ (test code=KSERUM) 4.1 MMOL/L 3.5-5.1 PLEASE NOTE NEW REFERENCE RANGE(S) IN EFFECT EFFECTIVE 10/07/2009 - NEW ANALYZER ([employer]S 5600) CHLORIDE (test code=CL) 110 MMOL/L 98-107 CO2 (test code=CO2) 26 MMOL/L 22-30 BUN (test code=BUN) 35 MG/DL 9-20 CREA (test code=CREA) 0.9 MG/DL 0.8-1.5 GLUCOSE (test code=GLUCOSE) 110 MG/DL 70-99 Fasting glucose normal <100 MG/DL- [employer] recommendation CALCIUM (test code=CABLOOD) 9.3 MG/DL 8.4-10.2 GFR (test code=GFR) TNP mL/min/1.73m2 GFR CALCULATION IS NOT APPLICABLE FOR PATIENTS <18 A GFR of >90 mL/min/1.73m2 is considered normal. CHEST 1 VIEW [id number] 21:33:[address] [address]LJECDQMOGP IMAGING REPORTPatient Name: MILTON BONITA HDate of Service: 39-39-6506Toh: 75 Sex: M Order #: 1400 Room: [facility]: 1940 X-Ray Number: [id number] Record Number: [id number] Hospital Number: [id number] Physician: Isela GARRISONing Physician: DANE COOMBS one view 05/03/2016 at 2113 hoursHistory: Chest pain x 6 hComparison: Multiple exams dating back to 01/21/2015Heart size is at upper limits of normal. Right paratracheal density may bedue to vasculature. Developing adenopathy is not excluded. This is morepronounced than on the prior studies.Lungs are well-aerated and clear. Bones and soft tissues are stable.IMPRESSION:No acute cardiopulmonary process.Right paratracheal density as discussed. Follow-up recommended.Electronically Signed By: Fred Rmaírez M.D., 05/03/2016 9:30 PMLegally authenticated by DAPHNEY MALIK 2016-05-03 21:30:27TROPONIN [id number] 21:24:00* Test Item Value Reference Range Comments TROPER (test code=TROPER) 0.01 ng/ml 0.0-0.08 INTERPRETIVE DATA A POC TROPONIN OF </=0.08 NG/ML IS CONSIDERED NEGATIVE NEW TEST OF 02-20-2012iSTAT PROTHROMBIN TIME WITH [id number] 21:22:00* Test Item Value Reference Range Comments PROTHROMBIN TIME (test code=PT) 12.6 SECONDS 12.0-14.6 INR Usual Range=2 to 3 for prevention of deep vein thrombosis (DVT) INR (test code=INR) 0.9 [id number] 21:22:00* Test Item Value Reference Range Comments PTT (test code=PTT) 28.1 SECONDS 24.4-36.3 HEPARIN THERAPEUTIC RANGE 57-92 SECONDS
[2018-10-24 08:13] LABS: BASOPHILS % 0.9 % (0.0-1.0); EOSINOPHILS # (AUTO) 0.3 (0.0-0.4); EOSINOPHILS % 5.5 % (0.0-6.0); HEMATOCRIT 39.7 % (38.2-49.6); HEMOGLOBIN 13.9 g/dL (14.0-18.0); LYMPHOCYTES # (AUTO) 1.3 (1.0-3.2); LYMPHOCYTES % 28.8 % (18.0-39.1); MEAN CORPUSCULAR HEMOGLOBIN 33.3 pg (28-32); MEAN CORPUSCULAR VOLUME 95.2 fL (81-99); MONOCYTES # (AUTO) 0.4 (0.2-0.8); MONOCYTES % 8.7 % (4.4-11.3); NEUTROPHILS # (AUTO) 2.6 (2.1-6.9); NEUTROPHILS % 55.7 % (38.7-80.0); PLATELET COUNT 210 x10e3/uL (140-360); RED BLOOD COUNT 4.17 x10e6/uL (4.3-5.7); RED CELL DISTRIBUTION WIDTH 12.6 % (11.7-14.4)
--- NOTE | 2018-10-24 09:07 | Diagnostic Imaging Report ---
Exam: PA and lateral chest radiograph Clinical history: Preoperative clearance Findings: There is no evidence of pulmonary consolidation, pleural effusion, or pneumothorax. The cardiac size is within normal limits. The osseous structures are unremarkable. Impression: 1. No radiographic evidence of acute cardiorespiratory disease. Signed by: Dr. Arslan Pinto MD on 10/24/2018 9:03 AM
[2018-10-24 09:31] VITALS: BP 125/74
--- NOTE | 2018-10-26 23:23 | Operative Report ---
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 POSTOPERATIVE DIAGNOSIS: Largely overactive bladder. OPERATIVE PROCEDURE PERFORMED: Cystoscopy. ANESTHESIA: Local. ESTIMATED BLOOD LOSS: Minimal. INDICATIONS: Mr. Guillen is a 78-year-old gentleman with a long history of bladder outlet obstructive type symptoms, which has not responded to maximal medical management. He now presents for potential diagnosis of this problem. PROCEDURE IN DETAIL: The patient was brought into the operating room, placed in supine position. After administration of local anesthesia, was prepped and draped in usual sterile fashion. Cystoscopy was performed using 14-[place] flexible cystoscope. The anterior and posterior urethra were noted to be normal. The prostate revealed evidence of prior resection with mild regrowth or residual tissue noted on the right side from the 9 o'clock to 11 o'clock position. This was, however, not obstructing. The bladder was entered without difficulty. Upon entrance into the bladder, the ureteral orifices were in normal anatomical position and largely produce clear efflux. There were grade 2 trabeculations noted throughout without any obvious cellules or diverticuli. There were no other mucosal lesions identified. His bladder capacity was noted to be normal. The flexible scope was then removed and the patient was transferred to the postanesthesia care unit in good condition. Of note, the needle and instrument count were correct at the conclusion of the case. Mc Duran MD HLW/MODL /[id number]
== END | disposition home or self-care (01) ==
LOC: OR 07:01
PROVIDERS: ATTEND Urology
DX: N32.81 Overactive bladder (principal); N32.0 Bladder-neck obstruction; N32.89 Other specified disorders of bladder; I10 Essential (primary) hypertension; Z79.02 Long term (current) use of antithrombotics/antiplatelets; Z68.38 Body mass index [BMI] 38.0-38.9, adult
CPT/HCPCS: 36415; 71046; 85025; 93005; J0696